=== PATIENT | male | born 1960 | race Caucasian/White ===

== ENCOUNTER 2017-07-10 13:07 | Emergency (ER) | payer BC ==
[~2017-07-10] VITALS: Ht 170.2 cm; Wt 93.9 kg
[~2017-07-10 13:07] MED LIST: ASPIR-LOW81 M1 PO
[2017-07-10 16:16] LABS: HEMATOCRIT 45.4 % (38.0-50.0); MCH 31.1 PG (29.0-34.0); MCHC 33.5 G/DL (30.0-36.0); MCV 92.8 FL (86-99); MEAN PLAT.VOLUME 10.4 uM^3 (9.0-12.4); PLATELET COUNT 405 K/uL (156-360); RBC DIS.WIDTH-CV 12.8 % (11.8-14.6); RBC DIS.WIDTH-SD 43.7 % (39-53); RED BLOOD COUNT 4.89 M/uL (4.00-5.50); WHITE BLOOD COUNT 12.3 K/uL (4.1-10.2)
[2017-07-10 16:25] LABS: CHLORIDE 102 mEq/L (99-109); POTASSIUM 4.3 mEq/L (3.7-5.4); SODIUM 140 mEq/L (136-147)
[2017-07-10 16:28] LABS: GLUCOSE 91 mg/dL (70-99)
[2017-07-10 16:29] LABS: ANION GAP 12 MEQ/L (2-14)
[2017-07-10 16:30] LABS: TOTAL BILIRUBIN 0.4 mg/dL (0.0-1.0)
[2017-07-10 16:31] LABS: ALKALINE PHOSPHATASE 61 IU/L (3-129); GFR ESTIMATE (CALCULATED) 42 mL/min/
[2017-07-10 16:32] LABS: UREA NITROGEN (BUN) 26 mg/dL (9-23)
[2017-07-10] MEDS ORDERED: MOTRIN800 MG PO (18:53)
[2017-07-10] MEDS ORDERED: AUGMENTIN875 MG PO (18:53)
[2017-07-10] MEDS ORDERED: PERCOCET 5/31 TABLET PO (18:53)
[2017-07-10 19:20] VITALS: BP 168/100
== END 2017-07-10 19:21 | disposition home or self-care (01) ==
LOC: EME 13:07
PROVIDERS: Nurse Practitioner Family
DX: K61.1 Rectal abscess (principal); I10 Essential (primary) hypertension; D72.829 Elevated white blood cell count, unspecified
CPT/HCPCS: 74177; 80053; 83605; 85027; 87040; 99281; 99285; J1885; J2405; J3010; J7030